=== PATIENT | male | born 1945 | race Caucasian/White ===

== ENCOUNTER 2019-04-01 12:13 | Inpatient (IN) ==
[2019-04-01] MEDS ORDERED: ONDANSETRON 4 MG/2 ML VIAL IV PRN (14:47)
[2019-04-01] MEDS ORDERED: MEROPENEM 1,000 MG in SODIUM CHLORIDE 0.9% 100 ML IV SCH (15:00)
[2019-04-01] MEDS: SODIUM CHLORIDE 0.9% 1,000 ML IV SCH (15:45)
[2019-04-01] MEDS: DOPamine 800 MG/250 ML PREMIX IV PRN ×2 (15:54→22:51)
[2019-04-01] MEDS ORDERED: VANCOMYCIN INJ 1,500 MG in SODIUM CHLORIDE 0.9% 500 ML IV ONE (16:00)
[2019-04-01] MEDS: PANTOPRAZOLE 40 MG TABLET PO SCH (16:07)
[2019-04-01] MEDS ORDERED: GLUCAGON 1 MG VIAL IM PRN (16:44)
[2019-04-01] MEDS ORDERED: DEXTROSE 50% 25 GM/50 ML VIAL IV PRN (16:44)
[2019-04-01] MEDS ORDERED: VANCOMYCIN INJ 1,500 MG in SODIUM CHLORIDE 0.9% 500 ML IV PRN (20:00)
[2019-04-01] MEDS: ENOXAPARIN 30 MG/0.3 ML SYRINGE SUBCUT SCH (21:00)
[2019-04-01] MEDS: INSULIN LISPRO 100 UNIT/ML SUBCUT SCH (21:00)
[2019-04-01] MEDS: INSULIN GLARGINE 100 UNIT/ML SUBCUT SCH (21:01)
[2019-04-02] MEDS: SODIUM CHLORIDE 0.9% 1,000 ML IV SCH ×4 (00:17→21:53)
[2019-04-02] MEDS: MEROPENEM 500 MG in SODIUM CHLORIDE 0.9% 100 ML IV SCH ×2 (04:03→16:03)
[2019-04-02 04:44] LABS: Basophils % 0.3 % (0.0-0.8); Eosinophils % 0.1 % (0.00-10.9); Hematocrit 41.8 VOL% (42.0-52.0); Hemoglobin 13.2 GM/DL (14.0-18.0); Immature Granulocytes % 0.3 %; Immature Granulocytes Absolute 0.03 #; Lymphocytes # 1.2 10*3/uL (1.4-4.0); Lymphocytes % 12.3 % (21.2-54.2); Mean Corpuscular HGB Conc 31.6 GM/DL (32-36); Mean Corpuscular Volume 85.8 FL (87-102); Mean Platelet Volume 11.5 FL (9.6-12.0); Monocytes % 11.9 % (1.7-12.7); Neutrophils % 75.1 % (38.7-73.9); Platelet Count 108 T/CUMM (130-400); Red Blood Count 4.87 MC/CUMM (3.8-5.5); Red Cell Distribution Width 15.2 % (9.3-17.3); White Blood Count 10.1 T/CUMM (4-12)
[2019-04-02 05:12] LABS: Albumin 2.8 G/DL (3.4-5.0); Bilirubin,Total 0.5 MG/DL (0.2-1.0); Calcium 7.2 MG/DL (8.5-10.1); Osmolality,Calculated 298.5 MOS/KG (273-304); Thyroid Stimulating Hormone 0.312 uIU/ml (0.358-3.74); Total Protein 7.2 G/DL (6.4-8.3)
[2019-04-02 05:29] LABS: Troponin I 0.206 NG/ML (0.00-0.045)
[2019-04-02] MEDS ORDERED: MAGNESIUM SULF RIDER 4 GM in PREMIX 1 EACH IV PRN (05:51)
[2019-04-02] MEDS: MAGNESIUM SULF RIDER 2 GM in PREMIX 1 EACH IV PRN ×2 (07:07→09:57)
[2019-04-02] MEDS: DOPamine 800 MG/250 ML PREMIX IV PRN (07:08)
[2019-04-02] MEDS ORDERED: MAGNESIUM SULF RIDER 2 GM in PREMIX 1 EACH IV ONE (07:53)
[2019-04-02] MEDS: INSULIN LISPRO 100 UNIT/ML SUBCUT SCH ×4 (09:20→21:35)
[2019-04-02] MEDS: PANTOPRAZOLE 40 MG TABLET PO SCH (09:21)
[2019-04-02] MEDS ORDERED: VANCOMYCIN INJ 1,500 MG in SODIUM CHLORIDE 0.9% 500 ML IV SCH (16:00)
[2019-04-02] MEDS ORDERED: LORazepam 2 MG/1 ML VIAL ONE (21:25)
[2019-04-02] MEDS: INSULIN GLARGINE 100 UNIT/ML SUBCUT SCH (21:35)
[2019-04-02] MEDS: LORazepam 2 MG/1 ML VIAL IV PRN (21:35)
[2019-04-02] MEDS: ENOXAPARIN 30 MG/0.3 ML SYRINGE SUBCUT SCH (21:36)
[2019-04-03] MEDS ORDERED: HALOPERIDOL 5 MG/ML AMP IM ONE (00:01)
[2019-04-03] MEDS ORDERED: diphenhydrAMINE 50 MG/1 ML VIAL IV ONE (00:01)
[2019-04-03] MEDS: SODIUM CHLORIDE 0.9% 1,000 ML IV SCH ×5 (01:08→21:43)
[2019-04-03] MEDS: LORazepam 2 MG/1 ML VIAL IV PRN (05:15)
[2019-04-03] MEDS: MEROPENEM 500 MG in SODIUM CHLORIDE 0.9% 100 ML IV SCH (05:17)
[2019-04-03 06:35] LABS: Basophils % 0.8 % (0.0-0.8); Eosinophils # 0.1 10*3/uL (0.0-0.87); Eosinophils % 1.2 % (0.00-10.9); Hematocrit 34.3 VOL% (42.0-52.0); Hemoglobin 10.8 GM/DL (14.0-18.0); Immature Granulocytes % 0.6 %; Immature Granulocytes Absolute 0.03 #; Lymphocytes # 1.4 10*3/uL (1.4-4.0); Lymphocytes % 27.1 % (21.2-54.2); Mean Corpuscular HGB Conc 31.5 GM/DL (32-36); Mean Corpuscular Volume 85.3 FL (87-102); Mean Platelet Volume 12.4 FL (9.6-12.0); Monocytes % 10.1 % (1.7-12.7); Neutrophils % 60.2 % (38.7-73.9); Red Blood Count 4.02 MC/CUMM (3.8-5.5); Red Cell Distribution Width 15.7 % (9.3-17.3); White Blood Count 5.2 T/CUMM (4-12)
[2019-04-03 06:50] LABS: Platelet Count 62 T/CUMM (130-400)
[2019-04-03 07:07] LABS: Hypochromasia 1+; Microcytosis 1+; Platelet Estimate Decreased
[2019-04-03 07:16] LABS: Calcium 7.6 MG/DL (8.5-10.1); Osmolality,Calculated 297.7 MOS/KG (273-304)
[2019-04-03 07:22] LABS: Troponin I 0.123 NG/ML (0.00-0.045)
[2019-04-03] MEDS: INSULIN LISPRO 100 UNIT/ML SUBCUT SCH ×4 (07:30→20:30)
[2019-04-03] MEDS ORDERED: MORPHINE 10 MG PO PRN (07:37)
[2019-04-03] MEDS: amLODIPine 10 MG TABLET PO SCH (09:22)
[2019-04-03] MEDS: SIMVASTATIN 20 MG TABLET PO SCH (09:22)
[2019-04-03] MEDS: ASPIRIN CHEW 81 MG TABLET PO SCH (09:22)
[2019-04-03] MEDS: PANTOPRAZOLE 40 MG TABLET PO SCH (09:22)
[2019-04-03] MEDS: MEROPENEM 1,000 MG in SODIUM CHLORIDE 0.9% 100 ML IV SCH ×2 (12:47→20:19)
[2019-04-03] MEDS: INSULIN GLARGINE 100 UNIT/ML SUBCUT SCH (20:48)
[2019-04-03] MEDS: ENOXAPARIN 30 MG/0.3 ML SYRINGE SUBCUT SCH (20:48)
[2019-04-04] MEDS: LORazepam 2 MG/1 ML VIAL IV PRN ×2 (00:09→21:30)
[2019-04-04] MEDS: MEROPENEM 1,000 MG in SODIUM CHLORIDE 0.9% 100 ML IV SCH (05:10)
[2019-04-04 05:57] LABS: Basophils % 0.8 % (0.0-0.8); Eosinophils # 0.1 10*3/uL (0.0-0.87); Eosinophils % 1.7 % (0.00-10.9); Hematocrit 36.9 VOL% (42.0-52.0); Hemoglobin 11.7 GM/DL (14.0-18.0); Immature Granulocytes % 0.6 %; Immature Granulocytes Absolute 0.03 #; Lymphocytes # 1.3 10*3/uL (1.4-4.0); Lymphocytes % 25.1 % (21.2-54.2); Mean Corpuscular HGB Conc 31.7 GM/DL (32-36); Mean Corpuscular Volume 85.8 FL (87-102); Mean Platelet Volume 11.6 FL (9.6-12.0); Monocytes % 9.3 % (1.7-12.7); Neutrophils % 62.5 % (38.7-73.9); Red Cell Distribution Width 15.7 % (9.3-17.3); White Blood Count 5.2 T/CUMM (4-12)
[2019-04-04 06:01] LABS: Platelet Count 60 T/CUMM (130-400)
[2019-04-04 06:20] LABS: Osmolality,Calculated 291.4 MOS/KG (273-304)
[2019-04-04] MEDS: INSULIN LISPRO 100 UNIT/ML SUBCUT SCH ×4 (07:41→21:30)
[2019-04-04] MEDS: SODIUM CHLORIDE 0.9% 1,000 ML IV SCH (09:14)
[2019-04-04] MEDS: ENOXAPARIN 40 MG/0.4 ML SYRINGE SUBCUT SCH (09:39)
[2019-04-04] MEDS: POTASSIUM CHLORIDE 20 MEQ TABLET PO SCH ×3 (09:39→16:49)
[2019-04-04] MEDS: LISINOPRIL 10 MG TABLET PO SCH (09:39)
[2019-04-04] MEDS: SERTRALINE 100 MG TABLET PO SCH (09:39)
[2019-04-04] MEDS: ASPIRIN CHEW 81 MG TABLET PO SCH (09:39)
[2019-04-04] MEDS: SIMVASTATIN 20 MG TABLET PO SCH (09:40)
[2019-04-04] MEDS: NICOTINE 14 MG/24 HR PATCH TRANSDERM SCH (09:40)
[2019-04-04] MEDS: amLODIPine 10 MG TABLET PO SCH (09:40)
[2019-04-04] MEDS: PANTOPRAZOLE 40 MG TABLET PO SCH (09:40)
[2019-04-04] MEDS ORDERED: cefTRIAXone 1,000 MG in SYRINGE 1 EACH IV SCH (16:00)
[2019-04-04] MEDS: INSULIN GLARGINE 100 UNIT/ML SUBCUT SCH (21:30)
[2019-04-05 06:34] LABS: Basophils # 0.1 10*3/uL (0.0-0.2); Basophils % 0.7 % (0.0-0.8); Eosinophils # 0.1 10*3/uL (0.0-0.87); Eosinophils % 1.1 % (0.00-10.9); Hematocrit 36.7 VOL% (42.0-52.0); Hemoglobin 11.8 GM/DL (14.0-18.0); Immature Granulocytes % 0.8 %; Immature Granulocytes Absolute 0.06 #; Lymphocytes # 1.9 10*3/uL (1.4-4.0); Mean Corpuscular HGB Conc 32.2 GM/DL (32-36); Mean Corpuscular Volume 85.7 FL (87-102); Mean Platelet Volume 11.3 FL (9.6-12.0); Monocytes % 11.7 % (1.7-12.7); Neutrophils % 58.7 % (38.7-73.9); Red Blood Count 4.28 MC/CUMM (3.8-5.5); Red Cell Distribution Width 15.2 % (9.3-17.3); White Blood Count 7.1 T/CUMM (4-12)
[2019-04-05 06:40] LABS: Platelet Count 79 T/CUMM (130-400)
[2019-04-05 06:48] LABS: Calcium 8.4 MG/DL (8.5-10.1); Osmolality,Calculated 282.1 MOS/KG (273-304)
[2019-04-05 06:55] LABS: Hypochromasia 1+; Microcytosis 1+; Platelet Estimate Decreased
[2019-04-05] MEDS: INSULIN LISPRO 100 UNIT/ML SUBCUT SCH ×4 (08:23→21:21)
[2019-04-05] MEDS: LISINOPRIL 10 MG TABLET PO SCH (08:41)
[2019-04-05] MEDS: amLODIPine 10 MG TABLET PO SCH (08:41)
[2019-04-05] MEDS: SERTRALINE 100 MG TABLET PO SCH (08:41)
[2019-04-05] MEDS: PANTOPRAZOLE 40 MG TABLET PO SCH (08:41)
[2019-04-05] MEDS: NICOTINE 14 MG/24 HR PATCH TRANSDERM SCH (08:42)
[2019-04-05] MEDS: ENOXAPARIN 40 MG/0.4 ML SYRINGE SUBCUT SCH (08:42)
[2019-04-05] MEDS: ASPIRIN CHEW 81 MG TABLET PO SCH (08:42)
[2019-04-05] MEDS: MAGNESIUM SULF RIDER 2 GM in PREMIX 1 EACH IV PRN (08:50)
[2019-04-05] MEDS ORDERED: POTASSIUM CHLORIDE 20 MEQ TABLET PO ONE (12:00)
[2019-04-05] MEDS: SODIUM CHLORIDE 0.45% 1,000 ML IV SCH (12:13)
[2019-04-05] MEDS: ACYCLOVIR INJ 750 MG in SODIUM CHLORIDE 0.9% 250 ML IV SCH ×2 (12:14→20:18)
[2019-04-05] MEDS: cefTRIAXone 2,000 MG in SYRINGE 1 EACH IV SCH ×2 (12:14→23:15)
[2019-04-05 14:28] LABS: PT Patient Result 10.7 SECS (9.6-12.2)
[2019-04-05] MEDS: AMPICILLIN INJ 2,000 MG in SODIUM CHLORIDE 0.9% 100 ML IV SCH ×3 (14:49→21:43)
[2019-04-05] MEDS: VANCOMYCIN INJ 1,500 MG in SODIUM CHLORIDE 0.9% 500 ML IV SCH (16:37)
[2019-04-05] MEDS ORDERED: SIMVASTATIN 20 MG TABLET PO SCH (21:00)
[2019-04-05] MEDS: INSULIN GLARGINE 100 UNIT/ML SUBCUT SCH (21:43)
[2019-04-06] MEDS: AMPICILLIN INJ 2,000 MG in SODIUM CHLORIDE 0.9% 100 ML IV SCH ×2 (01:33→06:20)
[2019-04-06] MEDS: VANCOMYCIN INJ 1,500 MG in SODIUM CHLORIDE 0.9% 500 ML IV SCH (02:30)
[2019-04-06] MEDS: ACYCLOVIR INJ 750 MG in SODIUM CHLORIDE 0.9% 250 ML IV SCH (04:50)
[2019-04-06 06:11] LABS: Basophils # 0.1 10*3/uL (0.0-0.2); Basophils % 0.9 % (0.0-0.8); Eosinophils # 0.2 10*3/uL (0.0-0.87); Eosinophils % 3.4 % (0.00-10.9); Hematocrit 36.3 VOL% (42.0-52.0); Hemoglobin 11.4 GM/DL (14.0-18.0); Immature Granulocytes % 0.9 %; Immature Granulocytes Absolute 0.06 #; Lymphocytes # 1.9 10*3/uL (1.4-4.0); Lymphocytes % 27.7 % (21.2-54.2); Mean Corpuscular HGB Conc 31.4 GM/DL (32-36); Mean Corpuscular Volume 84.4 FL (87-102); Mean Platelet Volume 11.6 FL (9.6-12.0); Monocytes % 9.2 % (1.7-12.7); Neutrophils % 57.9 % (38.7-73.9); Platelet Count 79 T/CUMM (130-400); Red Cell Distribution Width 15.3 % (9.3-17.3); White Blood Count 6.7 T/CUMM (4-12)
[2019-04-06 06:23] LABS: Albumin 2.3 G/DL (3.4-5.0); Bilirubin,Total 1.5 MG/DL (0.2-1.0); Total Protein 6.4 G/DL (6.4-8.3)
[2019-04-06 06:31] LABS: Hypochromasia 1+; Platelet Estimate Decreased
[2019-04-06 06:32] LABS: Microcytosis Slight
[2019-04-06] MEDS ORDERED: POTASSIUM CHLORIDE 20 MEQ TABLET PO ONE (08:15)
[2019-04-06] MEDS ORDERED: MAGNESIUM SULF RIDER 2 GM in PREMIX 1 EACH IV ONE (08:15)
[2019-04-06] MEDS: INSULIN LISPRO 100 UNIT/ML SUBCUT SCH ×2 (08:48→13:53)
[2019-04-06] MEDS: amLODIPine 10 MG TABLET PO SCH (09:00)
[2019-04-06] MEDS: NICOTINE 14 MG/24 HR PATCH TRANSDERM SCH (09:01)
[2019-04-06] MEDS: SERTRALINE 100 MG TABLET PO SCH (09:01)
[2019-04-06] MEDS: ASPIRIN CHEW 81 MG TABLET PO SCH (09:01)
[2019-04-06] MEDS: LISINOPRIL 10 MG TABLET PO SCH (09:01)
[2019-04-06] MEDS: PANTOPRAZOLE 40 MG TABLET PO SCH (09:03)
[2019-04-06 11:48] VITALS: BP 155/77
[2019-04-06] MEDS: SODIUM CHLORIDE 0.45% 1,000 ML IV SCH (13:53)
== END 2019-04-06 13:51 | disposition home or self-care (01) | DRG 682 ==
LOC: N.ICU 14:07 → SUATTDRO 14:07 → N.5E 04-04 11:20
PROVIDERS: ADMIT Internal Medicine; ATTEND Internal Medicine